=== PATIENT | male | born 1935 | race Asian ===

== ENCOUNTER 2017-11-01 11:17 | Emergency (ER) | payer OTHER, BC ==
[2017-11-01] MEDS ORDERED: OXYCODONE/APAP 5/325 TAB PO ONE (11:38)
[2017-11-01] MEDS ORDERED: CYCLOBENZAPRINE 10 MG TAB PO ONE (11:38)
--- NOTE | 2017-11-01 11:55 | EDPHY ---
H & P Stated Complaint: nontraumatic pain in r hip and thigh since yesterday Time Seen by Provider: 11/01/17 11:38 HPI/ROS: HPI: This is a 82-year-old male who presents with Chief Complaint: nontraumatic pain in right buttock hip and thigh since yesterday Location: Right buttock, hip, lateral thigh Quality: Pain Duration: Since yesterday Signs and Symptoms: No bleeding, no radiation, no numbness, no weakness, no tingling, no incontinence, + decreased range of motion, no swelling, + pain, no fever Timing: Acute Severity: 09/19 Context: Patient is here in [place] visiting for book festival presents with complaints of right buttock hip and lateral thigh pain that started yesterday afternoon prior to boarding the plane. Due to the discomfort, he used the cane to aid his ambulation. He nontraumatic pain in right hip and thigh since yesterday believed to be cramps and tried to walk instructed out but this has not improved his symptoms. Patient reports that he has a history of calf cramps that are relieved by stretching. Denies any shortness of breath, radiation, weakness, paresthesias. He has been taking aspirin for the pain. Modifying Factors: Aspirin with no relief Comment: ROS: A comprehensive 10 system review of systems is otherwise negative aside from elements mentioned in the history of present illness. MEDICAL/SURGICAL/SOCIAL HISTORY: Medical history: Insulin-dependent diabetes mellitus type 2, hypertension Surgical history: Denies Social history: Employed. Lives in [place]. CONSTITUTIONAL: Elderly male, awake and alert, no obvious distress HEENT: Atraumatic and normocephalic. NECK: supple BACK: No midline tenderness, no paraspinous spasm, deep tendon reflexes 2/2, moderate pain with right straight leg raise, No foot drop. Achilles reflexes are equal bilaterally. Tenderness to palpation of the right SI joint. EXTREMITIES: 2/2 pulses, strength 5/5, right HIP: Flexion to 125, extension to 115, hyper extension to 15, abduction to 45. Moderate Pain with internal rotation and external rotation. No tenderness over greater trochanter. DIP/PIP/ MCP flexion/extension intact with good light touch sensation. no deformities, no clubbing, no cyanosis or edema. NEUROLOGICAL: no focal neuro deficits. GCS 15. Light touch sensation intact. SKIN: Warm and dry, no erythema. no rash. Good capillary refill. Source: Patient Exam Limitations: No limitations - Personal History Current Tetanus Diphtheria and Acellular Pertussis (TDAP): Unsure - Medical/Surgical History Hx Asthma: No Hx Chronic Respiratory Disease: No Hx Diabetes: Yes Hx Cardiac Disease: No Hx Renal Disease: No Hx Cirrhosis: No Hx Alcoholism: No Hx HIV/AIDS: No Hx Splenectomy or Spleen Trauma: No Other PMH: htn/diabetic - Social History Smoking Status: Never smoked Constitutional: Initial Vital Signs Temperature (C) 36.8 C 11/01/17 11:21 Heart Rate 82 11/01/17 11:21 Respiratory Rate 18 11/01/17 11:21 Blood Pressure 190/84 H 11/01/17 11:21 O2 Sat (%) 97 11/01/17 11:21 O2 Delivery Mode Room Air Allergies/Adverse Reactions: No Known Allergies Allergy (Unverified 11/01/17 11:20) Home Medications: Medication Instructions Recorded Cyclobenzaprine [Flexeril 10 MG 10 mg PO Q8 PRN #12 tab 11/01/17 (*)] Furosemide 11/01/17 Htn Med 11/01/17 Insulin Syringe 11/01/17 Metoprolol Succinate 11/01/17 oxyCODONE/APAP 5/325 [Percocet 1 - 2 tab PO Q4H PRN #10 tab 11/01/17 5/325 (*)] Medical Decision Making - Diagnostics Imaging Results: Imaging Impressions Pelvis X-Ray 11/01/17 11:38 Impression: Negative for fracture. Lumbar Spine X-Ray 11/01/17 11:39 Impression: Nothing acute identified. Multilevel facet hypertrophy is noted. ED Course/Re-evaluation: Pain started prior to flight and I believe he is low risk for DVT. Lumbar sacral x-ray and pelvic x-ray ordered Given Percocet and Flexeril with adequate relief of pain. Reassessed patient who is sleeping soundly. Reports adequate relief of pain. Ambulatory at discharge with improve movements. Given prescription for Percocet and Flexeril with orthopedic follow-up. No signs of neurovascular compromise/tenting of skin/compartment syndrome/ extremities and joints examined above and below area of concern and are neurovascularly intact. This patient was seen under the supervision of my secondary supervising physician. I evaluated care for this patient independently. Discussed this patient with Dr. Zimmer. Differential Diagnosis: Differential diagnosis includes but is not limited to SI joint dysfunction, lumbar radiculopathy, lumbar degenerative disc disease, greater trochanteric bursitis, hip degenerative disc disease. - Data Points Medications Given: Discontinued Medications Cyclobenzaprine HCl (Flexeril) 10 mg PO EDNOW ONE Stop: 11/01/17 11:39 Last Admin: 11/01/17 11:44 Dose: 10 mg Oxycodone/Acetaminophen (Percocet 5/325) 1 tab PO EDNOW ONE Stop: 11/01/17 11:39 Last Admin: 11/01/17 11:44 Dose: 1 tab Departure - Departure Disposition: Home, Routine, Self-Care Clinical Impression: Sacroiliac joint dysfunction of right side, Facet hypertrophy of lumbosacral region Condition: Good Instructions: Oxycodone/Acetaminophen (By mouth), Cyclobenzaprine (By mouth), Sacroiliitis (ED), Sacroiliac Joint Injection (DC) Additional Instructions: Take Tylenol 650 mg every 4 hours and/or Ibuprofen 600 mg every 8 hours with food as needed for pain. Use Percocet every 6 hours as needed for severe/break through pain. Use Flexeril every 8 hr as needed for muscle spasm. The x-rays obtained in the emergency department today demonstrate no evidence of an obvious fracture but does show arthritic changes in both hips and SI joints. Follow up with Orthopedics in 7-10 days at which time they will evaluate and recommend with you if conservative management versus further imaging is indicated. Referrals: Robert Charles MD [Medical Doctor] - As per Instructions Prescriptions: Cyclobenzaprine [Flexeril 10 MG (*)] 10 mg PO Q8 PRN #12 tab PRN Reason: Spasms oxyCODONE/APAP 5/325 [Percocet 5/325 (*)] 1 - 2 tab PO Q4H PRN #10 tab PRN Reason: Pain, Severe
[2017-11-01 12:47] VITALS: BP 182/76
== END 2017-11-01 12:35 | disposition home or self-care (01) ==
DX: M53.3 Sacrococcygeal disorders, not elsewhere classified (principal)